=== PATIENT | female | born 1955 | race Caucasian/White ===

== ENCOUNTER 2017-01-16 09:41 | Day surgery (SDC) | payer BC ==
[2017-01-16 10:43] VITALS: BMI 25.0
[2017-01-16] MEDS ORDERED: PROPOFOL 20 ML ONE ×2 (11:49)
[2017-01-16 12:29] VITALS: TEMP 98.2
[2017-01-16 15:06] VITALS: BP 100/59; PULSE 53
--- NOTE | 2017-01-19 15:26 | PATH ---
Surgical Pathology Report Patient Name: [facility]. Rec. #: [id number] /Age/Gender: 1955 (Age: 61) / F Account: [id number] Location: [facility]-ENDOSCOPY Taken: 01/16/2017 Received: 01/16/2017 Reported: 01/19/2017 Physicians: Best Bee M.D. Specimen(s) Received A: POLYP SIGMOID COLON B: BX DESCENDING COLON POLYP C: RECTAL POLYP Clinical History History of colon polyps Diverticulosis; colon polyps Final Diagnosis A. COLON, SIGMOID, BIOPSY: HYPERPLASTIC POLYP. B. COLON, DESCENDING, BIOPSY: COLONIC MUCOSA WITH NO PATHOLOGIC CHANGES. NO ADENOMATOUS OR HYPERPLASTIC CHANGES IDENTIFIED. C. COLON, RECTUM, BIOPSY: COLONIC MUCOSA WITH NO PATHOLOGIC CHANGES. NO ADENOMATOUS OR HYPERPLASTIC CHANGES IDENTIFIED. Electronically Signed Julio Baird M.D. Gross Description A. Received in formalin, labeled "biopsy sigmoid colon polyp" is a seth, irregular portion of soft tissue measuring 0.4 cm. in greatest dimension. The specimen is submitted in toto in one cassette. B. Received in formalin, labeled "biopsy descending colon polyp" is a seth, irregular portion of soft tissue measuring 0.2 cm. in greatest dimension. The specimen is submitted in toto in one cassette. C. Received in formalin, labeled "biopsy rectal polyp" is a seth, irregular portion of soft tissue measuring 0.5 cm. in greatest dimension. The specimen is submitted in toto in one cassette. [facility]/01/16/2017 [facility]/01/16/2017
== END 2017-01-16 13:20 | disposition home or self-care (01) ==
LOC: JASU-ENDO 09:41
PROVIDERS: ATTEND Internal Medicine Gastroenterology
PROC: 0DBP8ZX Excision of Rectum, Via Natural or Artificial Opening Endoscopic, Diagnostic (ICD-10-PCS; 2017-01-16)
PROC: 0DBM8ZX Excision of Descending Colon, Via Natural or Artificial Opening Endoscopic, Diagnostic (ICD-10-PCS; 2017-01-16)
PROC: 0DBN8ZX Excision of Sigmoid Colon, Via Natural or Artificial Opening Endoscopic, Diagnostic (ICD-10-PCS; principal; 2017-01-16 11:00)
DX: Z86.010 Personal history of colon polyps (principal); D12.5 Benign neoplasm of sigmoid colon; D12.4 Benign neoplasm of descending colon; K62.1 Rectal polyp; K57.30 Diverticulosis of large intestine without perforation or abscess without bleeding; K64.8 Other hemorrhoids
CPT/HCPCS: 88305-TC